=== PATIENT | female | born 2000 | race Hispanic/Latino ===

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

== ENCOUNTER 2023-12-22 08:43 | Emergency (ER) | payer SELFPAY ==
[2023-12-22] MEDS ORDERED: ACETAMINOPHEN 500 MG TAB ONE (09:27)
--- NOTE | 2023-12-22 10:19 | RAD REPORT ---
EXAM DESCRIPTION: RAD - C Spine Ap/Lat - 12/22/2023 10:13 am CLINICAL HISTORY: PAIN COMPARISON: No comparisons FINDINGS: Cervical bodies are normal in height and alignment.No fracture or acute bony process seen. No disc space narrowing. No prevertebral soft tissue thickening or other suspicious soft tissue finding. Rudimentary small cervical ribs. IMPRESSION: Negative cervical spine examination. Rudimentary cervical ribs.
--- NOTE | 2023-12-22 10:33 | EDPHYS ---
Physician Documentation [facility] Name: Nicole Lorenzo Age: 23 yrs Sex: Female : 2000 Arrival Date: 12/22/2023 Time: 08:43 Bed 14 Private MD: ED Physician Ananth Camejo HPI: 12/21 10:28 This 23 yrs old Female presents to ER via Ambulatory with complaints of Stiff ms3 Neck, Neck Pain, >24Hrs Old. 10:28 23-year-old female with no past medical history presents to the emergency department ms3 for right-sided neck pain after she was brushing her hair and hurt her neck pop. Patient states the discomfort is a 5/10 at rest and an 8/10 with movement. Patient states she is currently 6 weeks . 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 - Infectious Disease History:: Denies. - Social history:: Smoking status: Patient denies any tobacco usage or history of. ROS: 10:28 Constitutional: Negative for fever, and chills. ms3 10:28 Cardiovascular: Negative for chest pain, and palpitations. Respiratory: Negative for shortness of breath, cough, wheezing, and pleuritic chest pain, Abdomen/GI: Negative for abdominal pain, nausea, vomiting, diarrhea, and constipation, 10:28 Neck: Positive for pain with movement, pain at rest, of the Right trapezius, Exam: 10:28 Constitutional: This is a well developed, well nourished patient who is awake, alert, ms3 and in no acute distress. Cardiovascular: Regular rate and rhythm with a normal S1 and S2. No gallops, murmurs, or rubs. Normal PMI, no JVD. No pulse deficits. Respiratory: Lungs have equal breath sounds bilaterally, clear to auscultation and percussion. No rales, rhonchi or wheezes noted. No increased work of breathing, no retractions or nasal flaring. Abdomen/GI: Soft, non-tender, with normal bowel sounds. No distension or tympany. No guarding or rebound. No evidence of tenderness throughout. 10:28 Neck: External neck: tenderness, that is moderate, Over the right trapezius, Vital Signs: 09:06 BP 129 / 84; Pulse 77; Resp 16; Temp 98.2; Pulse Ox 100% ; Weight 72.57 kg; Height 5 ll1 ft. 2 in. ; Pain 8/10; 10:37 BP 122 / 82; Pulse 78; Resp 16; Pulse Ox 100% on R/A; mb9 09:06 Body Mass Index 29.26 (72.57 kg, 157.48 cm) ll1 09:06 Pain Scale: Adult ll1 MDM: 09:31 Patient medically screened. ms3 10:28 Differential diagnosis: cervical strain, Degenerative Disc Disease Muscle spasm. Data ms3 reviewed: vital signs, nurses notes, radiologic studies, plain films, and as a result, I will discharge patient. I considered the following discharge prescriptions or medication management in the emergency department Medications were administered in the Emergency Department. See MAR. Independent interpretation of the following test(s) in the Emergency Department X-Ray: My interpretation is Cervical spine x-ray images reviewed by me show anatomic alignment of vertebra. Counseling: I had a detailed discussion with the patient and/or guardian regarding the historical points, exam findings, and any diagnostic results supporting the discharge/admit diagnosis, radiology results, the need for outpatient follow up, to return to the emergency department if symptoms worsen or persist or if there are any questions or concerns that arise at home. Special discussion: I discussed with the patient/guardian in detail that at this point there is no indication for admission to the hospital. It is understood, however, that if the symptoms persist or worsen the patient needs to return immediately for re-evaluation. ED course: Discussed x-ray findings with patient. Patient's pain right superior shoulder. Right trapezius muscle is tender to palpation on exam. Patient to follow-up with her primary care physician in 2 to 3 days. Patient understands and agrees with plan. All questions were answered. Discussed [id number] Tylenol and heating pad use with patient.. 12/21 09:31 Order name: C Spine Ap/Lat XRAY; Complete Time: 10:25 ms3 Administered Medications: 09:30 Not Given (Physician Discretion): diazepam5 mg PO once mb9 09:30 Not Given (Physician Discretion): [id number] mg PO once mb9 09:31 Drug: Acetaminophen PO 1000 mg PO once Route: PO; mb9 10:23 Follow up: Response: No adverse reaction mb9 Disposition Summary: 12/22/23 10:33 Discharge Ordered Notes: Location: Home ms3 Condition: Stable ms3 Diagnosis - Neck pain ms3 - Muscle spasm ms3 Followup: ms3 - With: Private Physician - When: 2 - 3 days - Reason: Recheck today's complaints Discharge Instructions: - Muscle Cramps and Spasms ms3 - Discharge Summary Sheet mb9 Forms: - Medication Reconciliation Form ms3 - Antibiotic Education ms3 - Prescription Opioid Use ms3 - Patient Portal Instructions ms3 - Leadership Thank You Letter ms3 - Work release form mb9 Signatures: Dispatcher [employer] Александр Watkins, RN RN ll1 Ananth Camejo DO DO ms3 Jania Link RN RN mb9 Corrections: (The following items were deleted from the chart) 09:46 09:27 C Spine Ap/Lat+[id number] ordered. EDMS EDMS
--- NOTE | 2023-12-22 10:33 | ER ---
Nurse's Notes [facility] Name: Nicole Lorenzo Age: 23 yrs Sex: Female : 2000 Arrival Date: 12/22/2023 Time: 08:43 Bed 14 Private MD: Diagnosis: Neck pain;Muscle spasm Presentation: 12/21 09:06 Chief complaint: Patient states: [place] a pop in her neck while fixing her hair this ll1 morning. Pain and stiffness since. Coronavirus screen: Client denies travel out of the [place] in the last 14 days. At this time, the client does not indicate any symptoms associated with coronavirus-19. Ebola Screen: Patient denies travel to an Ebola-affected area in the 21 days before illness onset. Acute neurological deficit: none identified. Initial Sepsis Screen: Does the patient meet any 2 criteria? No. Patient's initial sepsis screen is negative. Does the patient have a suspected source of infection? No. Patient's initial sepsis screen is negative. Risk Assessment: Do you want to hurt yourself or someone else? Patient reports no desire to harm self or others. Onset of symptoms was December 22, 2023. 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 - Infectious Disease History:: Denies. - Social history:: Smoking status: Patient denies any tobacco usage or history of. Screenin:07 [facility] ED Fall Risk Assessment (Adult) History of falling in the last 3 months, mb9 including since admission No falls in past 3 months (0 pts) Confusion or Disorientation No (0 pts) Intoxicated or Sedated No (0 pts) Impaired Gait No (0 pts) Mobility Assist Device Used No (0 pt) Altered Elimination No (0 pt) Score/Fall Risk Level 0 - 2 = Low Risk Oriented to surroundings, Maintained a safe environment, Educated pt \T\ family on fall prevention, incl call for assistance when getting out of bed. Abuse screen: Denies threats or abuse. Nutritional screening: No deficits noted. Tuberculosis screening: No symptoms or risk factors identified. Assessment: 09:17 General: Appears in no apparent distress. Behavior is calm, cooperative. Pain: mb9 Complains of pain in neck Pain does not radiate. Quality of pain is described as throbbing, Pain began suddenly, Is intermittent, Aggravated by increased activity, repositioning. Neuro: Mireles Agitation-Sedation Scale (RASS): 0 - Alert and Calm Level of Consciousness is awake, alert, obeys commands, Oriented to person, place, time, situation, Appropriate for age. Cardiovascular: Patient's skin is warm and dry. Respiratory: Airway is patent Respiratory effort is even, unlabored, Respiratory pattern is regular, symmetrical. GI: No signs and/or symptoms were reported involving the gastrointestinal system. : No signs and/or symptoms were reported regarding the genitourinary system. EENT: No signs and/or symptoms were reported regarding the EENT system. Derm: Skin is pink, warm \T\ dry. Musculoskeletal: Range of motion: limited in neck. 10:23 Reassessment: No changes from previously documented assessment. Patient and/or family mb9 updated on plan of care and expected duration. Pain level reassessed. Patient is alert, oriented x 3, equal unlabored respirations, skin warm/dry/pink. Vital Signs: 09:06 BP 129 / 84; Pulse 77; Resp 16; Temp 98.2; Pulse Ox 100% ; Weight 72.57 kg; Height 5 ll1 ft. 2 in. ; Pain 8/10; 10:37 BP 122 / 82; Pulse 78; Resp 16; Pulse Ox 100% on R/A; mb9 09:06 Body Mass Index 29.26 (72.57 kg, 157.48 cm) ll1 09:06 Pain Scale: Adult ll1 ED Course: 08:46 Patient arrived in ED. im 09:04 Jania Link, DEMOND is Primary Nurse. mb9 09:04 Arm band placed on Patient placed in an exam room, on a stretcher. ll1 09:05 Ananth Camejo DO is Attending Physician. ms3 09:07 Bed in low position. Call light in reach. Side rails up X 1. Provided Education on: mb9 press call light if needing anything. Client placed on continuous cardiac and pulse oximetry monitoring. NIBP monitoring applied. 09:08 Triage completed. ll1 09:18 No provider procedures requiring assistance completed. mb9 10:[address] via wheelchair. mb9 10:15 C Spine Ap/Lat XRAY In Process Unspecified. EDMS 10:37 Patient did not have IV access during this emergency room visit. mb9 Administered Medications: 09:30 Not Given (Physician Discretion): diazepam5 mg PO once mb9 09:30 Not Given (Physician Discretion): mg PO once mb9 09:31 Drug: Acetaminophen PO 1000 mg PO once Route: PO; mb9 10:23 Follow up: Response: No adverse reaction mb9 Medication: 09:08 VIS not applicable for this client. mb9 Outcome: 10:33 Discharge ordered by . ms3 10:37 Discharged to home ambulatory, with family, mb9 10:37 Condition: stable 10:37 Discharge instructions given to patient, Instructed on discharge instructions, follow up and referral plans. Demonstrated understanding of instructions, follow-up care, 10:37 Patient left the ED. mb9 Signatures: Dispatcher [employer] EDMS Александр Will, RN RN ll1 Ananth Camejo DO DO ms3 Jania Link RN RN mb9 Wendy Houston im
[2023-12-22 11:03] VITALS: BP 122/82; O2SAT 100
== END 2023-12-22 10:37 | disposition home or self-care (01) ==
LOC: ER 08:43
DX: O26.891 Other specified pregnancy related conditions, first trimester (principal); M62.838 Other muscle spasm; Z3A.01 Less than 8 weeks gestation of pregnancy
CPT/HCPCS: 72040; 99284